=== PATIENT | female | born 1990 | race Caucasian/White ===

== ENCOUNTER 2021-10-06 08:00 | Outpatient (CLI) | payer SELFPAY | END 2021-10-06 23:59 | LOC: LAB.N 08:00 | PROVIDERS: ATTEND Nurse Practitioner | DX: U07.1 COVID-19 (principal) | CPT/HCPCS: 87275; 87276 ==

== ENCOUNTER 2021-10-06 13:15 | Outpatient (CLI) | payer OTHER ==
--- NOTE | 2021-10-06 14:51 | XRAY Report ---
PROCEDURE: Chest 2 View X-Ray INDICATIONS: SOB TECHNIQUE: 2 view(s) of the chest. COMPARISON: None. FINDINGS: SUPPORT DEVICES: None. LUNGS/PLEURA: No focal consolidation, pleural effusion or space-occupying pneumothorax. MEDIASTINUM: The cardiomediastinal silhouette is within normal limits. BONES/SOFT TISSUES: No acute abnormality. IMPRESSION: 1.No acute cardiopulmonary abnormality. Reviewed by: Pedro Luis Sheth MD on 10/06/2021 2:50 PM [facility] Approved by: Pedro Luis Sheth MD on 10/06/2021 2:50 PM [facility] Station ID: [id number]
== END 2021-10-06 23:59 | disposition home or self-care (01) ==
LOC: DI.N 13:15
PROVIDERS: ATTEND Nurse Practitioner
DX: R06.02 Shortness of breath (principal)